=== PATIENT | female | born 1950 | race Caucasian/White ===

== ENCOUNTER → 2016-07-08 | Outpatient (CLI) | payer OTHER ==
[~2016-07-08] MED LIST: ASCO10003 PO; ASPCH81X PO; BIOT1TAB5 PO; COEN1CAP7 PO; EZET10TA63 PO; FISHCAP; HYDR25TA5 PO; LEVO100T7 PO; MULT-845 PO; PARO1TAB27 PO; PRDFOPSD; PRLSR20 PO; RAMI10CA PO; RESV1POW; RESVERATROL PO; VERA180T33 PO; WLC625 PO
== END | disposition home or self-care (01) ==
LOC: C.CPL 13:54
PROVIDERS: ATTEND Orthopaedic Surgery
DX: Z01.810 Encounter for preprocedural cardiovascular examination (principal)

== ENCOUNTER → 2016-07-12 | Outpatient (CLI) | payer OTHER ==
[2016-07-12 17:34] LABS: HEMATOCRIT 41.5 % (37-47); MEAN CELL VOLUME 83.2 fL (80-100); MEAN CORPUSCULAR HEMOGLOBIN 29.5 pg (25-34); MEAN CORPUSCULAR HGB CONC 35.4 g/dl (32-36); MEAN PLATELET VOLUME 8.4 fL (7.4-10.4); PLATELET COUNT 321 K/uL (130-400); RED BLOOD COUNT 4.99 M/uL (4.2-5.4); WHITE BLOOD COUNT 6.25 K/uL (4.8-10.8)
[2016-07-12 17:51] LABS: ALT/SGPT 38 U/L (12-78); BLOOD UREA NITROGEN 21 mg/dl (7-18); BUN/CREATININE RATIO 28.4 (10-20); CALCIUM 9.2 mg/dl (8.5-10.1); CARBON DIOXIDE 24 mmol/L (21-32); CHLORIDE 102 mmol/L (98-107); CHOLESTEROL 187 mg/dl (0-200); CREATININE 0.74 mg/dl (0.60-1.20); GLUCOSE 87 mg/dl (70-99); SODIUM 137 mmol/L (136-145); TRIGLYCERIDES 77 mg/dl (0-150); VERY LOW DENSITY LIPOPROT CALC 15 mg/dl
[2016-07-12 17:58] LABS: ALB/GLOB RATIO 1.3 (0.9-2); ALKALINE PHOSPHATASE 47 U/L (45-117); AST/SGOT 35 U/L (15-37); HDL CHOLESTEROL 63 mg/dl; LDL CHOLESTEROL CALCULATED 109 mg/dl
== END | disposition home or self-care (01) ==
LOC: C.LABPBG 13:08
PROVIDERS: ATTEND Internal Medicine Cardiovascular Disease
DX: I49.1 Atrial premature depolarization (principal)

== ENCOUNTER → 2016-08-15 | Outpatient (CLI) | payer OTHER ==
[2016-08-15 13:07] LABS: AMYLASE 56 U/L (25-115)
== END | disposition home or self-care (01) ==
LOC: C.LABPBG 10:58
PROVIDERS: ATTEND Neuromusculoskeletal Medicine & OMM
DX: K86.2 Cyst of pancreas (principal)

== ENCOUNTER → 2017-02-16 | Outpatient (CLI) | payer OTHER | END | disposition home or self-care (01) | LOC: C.LABPBG 12:45 | PROVIDERS: ATTEND Internal Medicine Gastroenterology | DX: D49.0 Neoplasm of unspecified behavior of digestive system (principal) ==

== ENCOUNTER → 2017-02-21 | Outpatient (CLI) | payer OTHER ==
[2017-02-21 13:07] LABS: BLOOD UREA NITROGEN 18 mg/dl (7-18); BUN/CREATININE RATIO 27.4 (10-20); CALCIUM 9.1 mg/dl (8.5-10.1); CARBON DIOXIDE 30 mmol/L (21-32); CHLORIDE 103 mmol/L (98-107); CREATININE 0.65 mg/dl (0.60-1.20); GLUCOSE 89 mg/dl (70-99); MAGNESIUM 2.1 mg/dl (1.8-2.4); POTASSIUM 4.2 mmol/L (3.5-5.1); SODIUM 138 mmol/L (136-145)
== END | disposition home or self-care (01) ==
LOC: C.LABPBG 10:37
PROVIDERS: ATTEND Family Medicine
DX: I10 Essential (primary) hypertension (principal); E03.9 Hypothyroidism, unspecified; I49.3 Ventricular premature depolarization; I47.1 Supraventricular tachycardia

== ENCOUNTER → 2017-03-02 | Outpatient (CLI) | payer OTHER | END | disposition home or self-care (01) | LOC: C.LABPBG 15:41 | PROVIDERS: ATTEND Family Medicine | DX: J02.9 Acute pharyngitis, unspecified (principal) ==

== ENCOUNTER 2017-03-08 06:24 | Emergency (ER) | payer OTHER ==
[~2017-03-08] VITALS: Ht 172.7 cm; Wt 100.1 kg
[~2017-03-08 06:24] MED LIST changes: -FISHCAP; +FISHCAP PO
[2017-03-08 06:27] VITALS: TEMP 37; Ht 172.7 cm; Wt 100.1 kg
[2017-03-08] MEDS ORDERED: SODIUM CHLORIDE 0.9% 1000ML 1,000 ML IV STA (06:40)
[2017-03-08] MEDS ORDERED: LEValbuterol HFA 15GM INHALER INH STA (06:40)
[2017-03-08] MEDS ORDERED: LEVALBUTEROL 1.25MG/3ML NEB INH STA (06:40)
--- NOTE | 2017-03-08 06:41 | EMERGENCY ROOM VISIT NOTE ---
History Report prepared by Richard: Zee Dc Under the Supervision of: Dr. Damaso Ballesteros M.D. First contact with patient: 06:32 Chief Complaint: IRREGULAR HEARTBEAT Stated Complaint: IRREGULAR HEARTBEAT,LIGHT HEADED History of Present Illness The patient is a 66 year old female who presents to the Emergency Room with complaints of a resolved irregular heart rate that began this morning. The patient states for the past week she has been experiencing a persistent productive cough. She states that recently her doctor started her on Levaquin for a possible pneumonia. The patient states that this morning she woke feeling lightheaded and short of breath. She states that she then noticed her heart rate become irregular. The patient states that she tried taking her pulse. She reports a history of PACs and SVT. The patient states that he follows with Dr. Shi from Cardiology. She denies any history of a cardiac catheterization. The patient states that she has an inhaler but has not used it. She denies being a smoker. The patient denies any abdominal pain. Source of History: patient Onset: this morning Position: other (global) Quality: other (irregular heartbeat) Timing: resolved Associated Symptoms: + cough, + SOB, No abdominal pain Note: Associated Symptoms: lightheaded Review of Systems See HPI for pertinent positives & negatives. A total of 10 systems reviewed and were otherwise negative. Past Medical & Surgical Medical Problems: (1) Hypertension (2) Irregular heart beat Family History Hypertension Social History Smoking Status: Never Smoker Alcohol Use: occasionally Drug Use: none Marital Status: Housing Status: lives with family Occupation Status: retired Current/Historical Medications Scheduled Ascorbic Acid (Vitamin C), 1,000 MG PO QAM Aspirin (Aspirin Chewable), 81 MG PO QAM Biotin (Biotin), 1,000 MCG PO QAM Coenzyme Q10 (Ubidecarenone) (Coq10), 200 MG PO QAM Colesevelam Hcl (Welchol), 3 TAB PO BID Doxycycline (Monohydrate) (Doxycycline), 100 MG PO BID Ezetimibe (Zetia), 10 MG PO QAM Fish Oil-Borage Oil-Flaxseed O (Sm Natural [place]-3 Fish O), 1,000 MG PO DAILY Hydrochlorothiazide (Hydrochlorothiazide), 25 MG PO QAM Levofloxacin (Levaquin), 500 MG PO DAILY Levothyroxine Sodium (Levothyroxine Sodium), 100 MCG PO QAM Multiple Vitamins W/ Minerals (Centrum Silver Adult 50+), 1 TAB PO QAM Omeprazole (Prilosec), 20 MG PO QAM Paroxetine (Paxil), 20 MG PO QAM Ramipril (Ramipril), 10 MG PO QAM Verapamil Hcl (Calan Sr Ext Rel), 180 MG PO QAM Miscellaneous Medications Resveratrol (Bulk) (Resveratrol) Allergies Coded Allergies: Penicillins (Verified Allergy, Intermediate, hives, 03/08/17) Cephalosporins (Unverified Allergy, Mild, 03/08/17) Fentanyl (Unverified Allergy, Mild, INCREASE IN BP, 03/08/17) NSAIDs (Verified Allergy, Mild, "Anti-inflammatories" -- unknown rxn, ) Prednisone (Unverified Allergy, Mild, 03/08/17) Sulfa Drugs (Unverified Allergy, Mild, 03/08/17) Codeine (Unverified Allergy, Unknown, ., 03/08/17) Iodinated Diagnostic Agents (Verified Allergy, Unknown, HIVES, 03/08/17) Niacin (Unverified Allergy, Unknown, ., 03/08/17) Statins (Unverified Allergy, Unknown, ., 03/08/17) Physical Exam Vital Signs Date Time Temp Pulse Resp B/P (MAP) Pulse Ox O2 Delivery O2 Flow Rate FiO2 03/08/17 07:45 84 20 142/71 94 Room Air 03/08/17 07:43 75 145/72 83 150/84 79 142/71 03/08/17 07:06 76 18 98 Room Air 03/08/17 06:50 96 Room Air 03/08/17 06:46 86 03/08/17 06:27 37.0 90 18 88/59 96 Room Air Physical Exam GENERAL: Patient is a healthy-appearing well-nourished female HEAD: Normocephalic atraumatic EYES: Ocular movements intact pupils equal and react to light OROPHARYNX mucous membranes are moist no exudates present no erythema or edema present NECK: Supple no nuchal rigidity CHEST: Good equal expansion LUNGS: Bilateral wheezes at both bases. CARDIAC: Normal S1 and S2 ABDOMEN: Soft nontender no guarding BACK: No CVA tenderness EXTREMITIES: No pain upon palpation normal muscle strength in all groups no clubbing cyanosis or edema NEURO: Patient is following commands and answering questions appropriately. Alert and oriented x3 Cranial Nerves 2-12 grossly intact Medical Decision & Procedures ER Provider Diagnostic Interpretation: X-ray results as stated below per interpretation by me and the radiologist: CHEST ONE VIEW PORTABLE HISTORY: 66 years-old Female Pt c/o SOB acute shortness of breath COMPARISON: Chest radiograph 09/09/2015 TECHNIQUE: Portable upright AP view of the chest FINDINGS: Cardiomediastinal and hilar silhouettes are within normal limits. There is atherosclerosis of the aorta. No pneumothorax, pleural effusion, focal airspace consolidation or overt pulmonary edema. Bones of the chest are grossly intact. IMPRESSION: No acute cardiopulmonary process. The above report was generated using voice recognition software. It may contain grammatical, syntax or spelling errors. Electronically signed by: Guille Bahena M.D. 03/08/2017 7:28 AM Dictated Date/Time: 03/08/2017 7:27 AM Laboratory Results 03/08/17 06:40 Red Blood Count 5.69, Mean Corpuscular Volume 83.7, Mean Corpuscular Hemoglobin 28.3, Mean Corpuscular Hemoglobin Concent 33.8, Mean Platelet Volume 8.1, Neutrophils (%) (Auto) 31.5, Lymphocytes (%) (Auto) 49.3, Monocytes (%) (Auto) 10.4, Eosinophils (%) (Auto) 7.5, Basophils (%) (Auto) 1.1, Neutrophils # (Auto ) 1.80, Lymphocytes # (Auto) 2.81, Monocytes # (Auto) 0.59, Eosinophils # (Auto ) 0.43, Basophils # (Auto) 0.06 03/08/17 06:40 Test 03/08/17 06:40 03/08/17 07:00 White Blood Count 5.70 K/uL (4.8-10.8) Red Blood Count 5.69 M/uL (4.2-5.4) Hemoglobin 16.1 g/dL (12.0-16.0) Hematocrit 47.6 % (37-47) Mean Corpuscular Volume 83.7 fL (80-100) Mean Corpuscular Hemoglobin 28.3 pg (25-34) Mean Corpuscular Hemoglobin Concent 33.8 g/dl (32-36) Platelet Count 230 K/uL (130-400) Mean Platelet Volume 8.1 fL (7.4-10.4) Neutrophils (%) (Auto) 31.5 % Lymphocytes (%) (Auto) 49.3 % Monocytes (%) (Auto) 10.4 % Eosinophils (%) (Auto) 7.5 % Basophils (%) (Auto) 1.1 % Neutrophils # (Auto) 1.80 K/uL (1.4-6.5) Lymphocytes # (Auto) 2.81 K/uL (1.2-3.4) Monocytes # (Auto) 0.59 K/uL (0.11-0.59) Eosinophils # (Auto) 0.43 K/uL (0-0.5) Basophils # (Auto) 0.06 K/uL (0-0.2) RDW Standard Deviation 39.6 fL (36.4-46.3) RDW Coefficient of Variation 13.1 % (11.5-14.5) Immature Granulocyte % (Auto) 0.2 % Immature Granulocyte # (Auto) 0.01 K/uL (0.00-0.02) Anion Gap 8.0 mmol/L (3-11) Est Creatinine Clear Calc Drug Dose 97.8 ml/min Estimated GFR () 104.6 Estimated GFR (Non- 90.3 BUN/Creatinine Ratio 19.5 (10-20) Calcium Level 9.1 mg/dl (8.5-10.1) Total Bilirubin 0.6 mg/dl (0.2-1) Direct Bilirubin 0.1 mg/dl (0-0.2) Aspartate Amino Transf (AST/SGOT) 39 U/L (15-37) Alanine Aminotransferase (ALT/SGPT) 38 U/L (12-78) Alkaline Phosphatase 49 U/L (45-117) Total Creatine Kinase 361 U/L (26-192) Creatine Kinase MB 5.8 ng/ml (0.5-3.6) Creatine Kinase MB Ratio 1.6 (0-3.0) Troponin I < 0.015 ng/ml (0-0.045) Total Protein 8.0 gm/dl (6.4-8.2) Albumin 3.8 gm/dl (3.4-5.0) Thyroid Stimulating Hormone (TSH) 4.100 uIu/ml (0.300-4.500) Influenza Type A Antigen Neg for Influ A (NEG) Influenza Type B Antigen Neg for Influ B (NEG) Labs reviewed by ED physician. Medications Administered Medications (Trade) Dose Ordered Sig/Kenn Route Start Time Stop Time Status Last Admin Dose Admin Sodium Chloride 1,000 ml @ 999 mls/hr Q1H1M STAT IV 03/08/17 06:40 03/08/17 07:40 DC 03/08/17 06:49 999 MLS/HR Levalbuterol (Xopenex 1.25MG/ 3ML Neb) 1.25 mg Q6R STAT INH 03/08/17 06:40 03/08/17 06:43 DC 03/08/17 07:05 1.25 MG Levalbuterol (Xopenex Hfa Inhaler) 2 puffs QID STAT INH 03/08/17 06:40 03/08/17 06:44 DC 03/08/17 06:40 2 PUFFS Doxycycline Hyclate (Vibramycin Cap) 100 mg ONE STAT PO 03/08/17 07:55 03/08/17 07:57 DC 03/08/17 08:05 100 MG ECG Indication: other (irregular heartbeat) Rate (beats per minute): 78 Rhythm: normal sinus Findings: no acute ischemic change, no ectopy ED Course 0633: Past medical records reviewed. The patient was evaluated in room B2. A complete history and physical examination was performed. 0640: Ordered Levalbuterol 2 puffs INH, Levalbuterol 1.25 mg INH, Sodium Chloride 1000 ml @ 999 mls/hr IV. 0750: I reevaluated the patient and she is resting comfortably. I discussed the exam findings with her and I discussed the treatment plan. She verbalized complete understanding and agreement. She is ready to go home. 0755: Ordered Vibramycin cap 100 mg PO. Medical Decision Differential diagnosis: Etiologies such as metabolic, infection, hypo/hyperglycemia, electrolyte abnormalities, cardiac sources, intracerebral event, toxicologic, neurologic, as well as others were entertained. This is a 66-year-old female who presents emergency department complaining of palpitations. The patient is hypotensive upon her arrival to the emergency department. Orthostatic vital signs were obtained after the patient received a liter fluid which showed much improvement the patient's symptoms. The patient is concerned she was placed on Levaquin and she believes that these are causing her palpitations however I feel that she is dehydrated. She was observed for a total of 2 hours in the emergency department and at no time did she exhibit any symptoms of palpitations. She was given a Xopenex breathing treatment and I feel that she can be safely discharged home. I strongly encouraged the patient to take Xopenex twice every 6 hours to get her over this bronchitis. Chest x- ray shows no evidence of pneumonia. I also change the patient's antibiotic from Levaquin to doxycycline in the hopes of decreasing her palpitations. Patient was in agreement with the treatment plan. Medication Reconcilliation Current Medication List: was personally reviewed by me Blood Pressure Screening Patient's blood pressure: Low blood pressure Blood pressure disposition: Did not require urgent referral Impression Primary Impression: Bronchitis Additional Impression: Dehydration Scribe Attestation The scribe's documentation has been prepared under my direction and personally reviewed by me in its entirety. I confirm that the note above accurately reflects all work, treatment, procedures, and medical decision making performed by me. Departure Information Dispostion Home / Self-Care Prescriptions Doxycycline (Monohydrate) (Doxycycline) 100 Mg Cap 100 MG PO BID for 10 Days, #20 TAB Prov: Damaso Ballesteros MD 03/08/17 Referrals Sharri Chacon DO (PCP) Forms HOME CARE DOCUMENTATION FORM, IMPORTANT VISIT INFORMATION, School Instructions, Work Instructions Patient Instructions ED Bronchitis Asthmatic, ED Dehydration, My [facility] Additional Instructions Increase fluids next 48 hours Use inhaler twice every 6 hours STOP taking Levaquin You have been examined and treated today on an emergency basis only. This is not a substitute for, or an effort to provide, complete comprehensive medical care. It is impossible to recognize and treat all injuries or illnesses in a single emergency department visit. It is therefore important that you follow up closely with Dr Chacon. Call as soon as possible for an appointment. Thank you for your time and consideration. I look forward to speaking with you again soon. Please don't hesitate to call us if you have any questions. Problem Qualifiers
[2017-03-08 06:59] LABS: BASO % 1.1 %; BASO ABS # 0.06 K/uL (0-0.2); COMPLETE YES; EOS % 7.5 %; HEMATOCRIT 47.6 % (37-47); IG% 0.2 %; LYMPH % 49.3 %; LYMPH ABS # 2.81 K/uL (1.2-3.4); MEAN CELL VOLUME 83.7 fL (80-100); MEAN CORPUSCULAR HEMOGLOBIN 28.3 pg (25-34); MEAN CORPUSCULAR HGB CONC 33.8 g/dl (32-36); MEAN PLATELET VOLUME 8.1 fL (7.4-10.4); MONO % 10.4 %; NEUT % 31.5 %; PLATELET COUNT 230 K/uL (130-400); RED BLOOD COUNT 5.69 M/uL (4.2-5.4)
[2017-03-08] MEDS ORDERED: LEVO1TAB33 PO (07:00)
[2017-03-08 07:06] VITALS: PULSE 76; O2SAT 98
[2017-03-08 07:16] LABS: ALT/SGPT 38 U/L (12-78); BLOOD UREA NITROGEN 14 mg/dl (7-18); BUN/CREATININE RATIO 19.5 (10-20); CALCIUM 9.1 mg/dl (8.5-10.1); CARBON DIOXIDE 27 mmol/L (21-32); CHLORIDE 101 mmol/L (98-107); GLUCOSE 131 mg/dl (70-99); POTASSIUM 3.3 mmol/L (3.5-5.1); SODIUM 136 mmol/L (136-145)
[2017-03-08 07:27] LABS: ALKALINE PHOSPHATASE 49 U/L (45-117); AST/SGOT 39 U/L (15-37); CKMB/CK RATIO 1.6 (0-3.0)
--- NOTE | 2017-03-08 07:29 | DIAGNOSTIC IMAGING REPORT ---
CHEST ONE VIEW PORTABLE HISTORY: 66 years-old Female Pt c/o SOB acute shortness of breath COMPARISON: Chest radiograph 09/09/2015 TECHNIQUE: Portable upright AP view of the chest FINDINGS: Cardiomediastinal and hilar silhouettes are within normal limits. There is atherosclerosis of the aorta. No pneumothorax, pleural effusion, focal airspace consolidation or overt pulmonary edema. Bones of the chest are grossly intact. IMPRESSION: No acute cardiopulmonary process. The above report was generated using voice recognition software. It may contain grammatical, syntax or spelling errors. Electronically signed by: Guille Bahena M.D. 03/08/2017 7:28 AM Dictated Date/Time: 03/08/2017 7:27 AM
[2017-03-08 07:45] VITALS: BP 142/71; PULSE 84; O2SAT 94
[2017-03-08] MEDS ORDERED: DOXYCYCLINE HYCLATE 100 MG CAP PO STA (07:55)
[2017-03-08] MEDS ORDERED: DOXY-300 PO (07:59)
[2017-03-08 09:15] LABS: INFLUENZA A PCR Neg for Influ A (NEG); INFLUENZA B PCR Neg for Influ B (NEG)
[2017-03-10 15:36] LABS: BORDETELLA PERTUSSIS SOURCE Swab
== END 2017-03-08 08:12 | disposition home or self-care (01) ==
LOC: C.EDB 06:25
DX: J40 Bronchitis, not specified as acute or chronic (principal); E86.0 Dehydration; I10 Essential (primary) hypertension; Z82.49 Family history of ischemic heart disease and other diseases of the circulatory system; Z79.82 Long term (current) use of aspirin

== ENCOUNTER → 2017-05-16 | Outpatient (CLI) | payer OTHER ==
[~2017-05-16] MED LIST changes: +DOXY-300 PO; +LEVO1TAB33 PO; -PRDFOPSD; -RESVERATROL PO
--- NOTE | 2017-05-16 15:28 | MAMMOGRAPHY REPORT ---
BILATERAL DIGITAL SCREENING MAMMOGRAM WITH CAD: 05/16/2017 CLINICAL HISTORY: Routine screening examination. TECHNIQUE: Bilateral CC and MLO views were obtained. Current study was also evaluated with a Compute r Aided Detection (CAD) system. COMPARISON: Comparison is made to exams dated: 03/29/2016 mammogram, 03/16/2015 mammogram, 03/10/2014 mammogram, 03/04/2013 mammogram, 02/27/2012 mammogram, and 02/14/2011 mammogram. BREAST COMPOSITION: There are scattered areas of fibroglandular density in both breasts. FINDINGS: There are numerous benign rim calcifications throughout the left breast, and a few in the right breast. Mild vascular calcification bilaterally. No suspicious mass, architectural distortion or cluster of suspicious microcalcifications is seen. IMPRESSION: ACR BI-RADS CATEGORY 1: NEGATIVE There is no mammographic evidence of malignancy. A 1 year screening mammogram is recommended. The pa tient will receive written notification of the results. Approximately 10% of breast cancers are not detected with mammography. A negative mammographic report should not delay biopsy if a clinically suggestive mass is present. oRbyn Bermeo M.D. ay/:05/16/2017 10:24:50 Director Of Student Aid: Maryjane GROSSMAN)([place]), [facility] letter sent: Normal 1/2 BI-RADS Code: ACR BI-RADS Category 1: Negative
== END | disposition home or self-care (01) ==
LOC: C.MAMM 09:08
PROVIDERS: ATTEND Family Medicine
DX: Z12.31 Encounter for screening mammogram for malignant neoplasm of breast (principal)

== ENCOUNTER → 2017-09-14 | Outpatient (CLI) | payer OTHER ==
[2017-09-14 14:53] LABS: ALBUMIN 4.3 gm/dl (3.4-5.0); ALT/SGPT 43 U/L (12-78); AST/SGOT 35 U/L (15-37); BLOOD UREA NITROGEN 12 mg/dl (7-18); CALCIUM 9.3 mg/dl (8.5-10.1); CARBON DIOXIDE 29 mmol/L (21-32); CREATININE 0.75 mg/dl (0.60-1.20); GLUCOSE 90 mg/dl (70-99); SODIUM 134 mmol/L (136-145)
[2017-09-14 15:04] LABS: ALKALINE PHOSPHATASE 51 U/L (45-117); CHOLESTEROL 147 mg/dl (0-200); LDL CHOLESTEROL CALCULATED 85 mg/dl; TOTAL PROTEIN 7.9 gm/dl (6.4-8.2)
== END | disposition home or self-care (01) ==
LOC: C.LAB1850 11:54
PROVIDERS: ATTEND Family Medicine
DX: I10 Essential (primary) hypertension (principal); E78.00 Pure hypercholesterolemia, unspecified; E03.9 Hypothyroidism, unspecified; Z11.59 Encounter for screening for other viral diseases

== ENCOUNTER 2024-01-10 00:38 | Observation (INO) ==
--- NOTE | 2024-01-10 01:05 | Emergency Department Note ---
History of Present Illness General Chief complaint: Arrhythmia/Palpitations Stated complaint: ARRHYTHMIA/PALPITATIONS - DOESN'T FEEL LIKE AFIB Time Seen by Provider: 01/10/24 00:48 History of Present Illness This is a 73-year-old woman presenting to the emergency department for evaluation of palpitations. Patient has a known history of paroxysmal A-fib and is on Eliquis. She has not missed any dosing. She states that she had increased stress in her life yesterday, and this will often trigger her A-fib. Patient awoke from sleep with an elevated heart rate in the 120s and 130s. This did not feel like her normal A-fib. She typically has metoprolol and flecainide that she takes for acute episodes, but did not take these as the sensation was different from normal. No recent travel history. No fevers or chills. No lightheadedness, dizziness, or neck pain. Home Medications Medication Instructions Recorded Confirmed Type multivitamin 1 tab PO QAM 11/27/18 01/10/24 History ascorbic acid (vitamin C) 1,000 mg 1 gm PO QAM 03/21/19 01/10/24 History tablet coenzyme Q10 200 mg capsule 200 mg PO QAM 07/31/20 01/10/24 History aspirin 81 mg tablet 81 mg PO Q2D 01/07/21 01/10/24 History omega-3 fatty acids 1,000 mg 1,000 mg PO QAM 01/07/21 01/10/24 History capsule (Fish Oil Concentrate) cyclosporine 0.05 % eye drops in a 1 drp ophthalmic (eye) Q12H 03/01/21 01/10/24 History dropperette (Restasis) biotin 10,000 mcg capsule 10,000 mcg PO QAM 06/02/22 01/10/24 History resveratrol 250 mg capsule 250 mg PO QAM 06/02/22 01/10/24 History turmeric 450 mg-turmeric root 1 cap PO QAM 06/02/22 01/10/24 History extract 50 mg capsule calcium carbonate 600 mg-vitamin 1 tab PO DAILY 09/09/22 01/10/24 History D3 5 mcg (200 unit) tablet alprazolam 1 mg tablet,extended 1 mg PO QAM PRN Anxiety #30 tabs 12/15/22 01/10/24 Rx release 24 hr valacyclovir 1 gram tablet 1,000 mg PO BID PRN Outbreak #40 01/25/23 01/10/24 Rx tabs colesevelam 625 mg tablet (WelChol) 1,875 mg (3 x 625 mg) PO BID #540 03/27/23 01/10/24 Rx tabs ramipril 10 mg capsule 10 mg PO BID #180 caps 03/27/23 01/10/24 Rx magnesium chloride 64 mg 64 mg PO BID #180 tabs 04/20/23 01/10/24 Rx (magnesium chloride) tablet,delayed release levothyroxine 100 mcg tablet 100 mcg PO QAM #90 tabs 07/03/23 01/10/24 Rx nebivolol 2.5 mg tablet (Bystolic) 2.5 mg PO QAM #90 tabs 07/03/23 01/10/24 Rx rosuvastatin 5 mg tablet 5 mg PO 3XWK #90 tabs 07/25/23 01/10/24 Rx apixaban 5 mg tablet (Eliquis) 5 mg PO BID #180 tabs 10/20/23 01/10/24 Rx famotidine 20 mg tablet 20 mg PO BID #180 tabs 10/20/23 01/10/24 Rx hydrochlorothiazide 25 mg tablet 25 mg PO QAM #90 tabs 10/20/23 01/10/24 Rx ezetimibe 10 mg tablet 10 mg PO QAM #90 tabs 12/04/23 01/10/24 Rx flecainide 50 mg tablet 50 mg PO Q12H PRN atrial 12/04/23 01/10/24 Rx fibrillation #180 tabs verapamil 240 mg tablet,extended 240 mg PO QAM #90 tabs 12/04/23 01/10/24 Rx release paroxetine HCl 20 mg tablet 20 mg PO QAM #90 tabs 12/14/23 01/10/24 Rx metoprolol tartrate 25 mg tablet 25 mg PO Q6 PRN .a-fib 01/10/24 01/10/24 History Allergies Allergy/AdvReac Type Severity Reaction Status Date / Time Iodinated Contrast Media Allergy Severe HIVES Verified 01/10/24 02:13 Penicillins Allergy Severe hives Verified 01/10/24 02:13 Cephalosporins Allergy Intermediate Hives Verified 01/10/24 02:13 fentanyl Allergy Intermediate INCREASE Verified 01/10/24 02:13 IN BP NSAIDS (Non-Steroidal Allergy Intermediate migraines Verified 01/10/24 02:13 Anti-Inflamma prednisone Allergy Intermediate all over Verified 01/10/24 02:13 body aches Sulfa (Sulfonamide Allergy Mild Hives Verified 01/10/24 02:13 Antibiotics) codeine Allergy Unknown Unknown Verified 01/10/24 02:13 niacin Allergy Unknown leg and Verified 01/10/24 02:13 muscle pain Szoeuol-IGG-RbQ Reductase Allergy Unknown leg and Verified 01/10/24 02:13 Inhibitor muscle pain [Kevlond-Vit-Vbe Reductase Inhibitor] cephalexin [From Keflex] Allergy Hives Verified 01/10/24 02:15 Past Med/Surg History Problem List (Updated 01/10/24 @ 05:14 by Gordy Ann PA-C) Elevated troponin (Acute) Atrial fibrillation with rapid ventricular response (Acute) Panic disorder First degree AV block Otosclerosis of both ears Palpitations Chronic anticoagulation Tachycardia-bradycardia syndrome Sinus node dysfunction Paroxysmal atrial fibrillation Normal left ventricular systolic function and wall motion Diaphoresis Anxiety in acute stress reaction Hypomagnesemia Osteopenia History of back surgery (~1988) discectomy with no fusion Atheroembolism pt unsure Hollenhorst plaque, 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 Hypertension Medical History Hx of colonic polyps Hiatal hernia Elevated liver enzymes Atrial fibrillation with rapid ventricular response typically will last for 12-24 hours. will convert with medication. last episode 03/11/22. Surgical History History of carpal tunnel surgery of left wrist (05/2022) History of colonoscopy History of ERCP S/P left knee arthroscopy (10/2014) x2 partial lateral meniscectomy S/P carpal tunnel release Right wrist S/P trigger finger release b/l hands S/P cataract extraction Hx of tonsillectomy H/O arthroscopy of shoulder (07/13/16) Right shoulder, 07/13/2016 H/O adenoidectomy Family History Mother Carotid stenosis Hearing loss Coronary heart disease Father , age 52 Heart disease Myocardial infarction, Onset Age: 52 Sister Breast cancer Other No family history of adverse response to anesthesia Denies family history of Ovarian cancer Prostate cancer Colorectal cancer Social History Smoking Status: Never smoker Second Hand Exposure: No; Do You Dip or Chew Tobacco: No; Hx Alcohol Use: No Hx Substance Use: No Preferred Language: Cymraes Communication Ability: Effective Visual Impairment: No Limitations Hearing Ability: Use of Hearing Aid Exhibition Designer Required: No Beliefs That Will Affect Care: None marital status: Current Living Situation: Spouse current occupational status: retired Feels Safe at Home: Yes Childhood Exposure to Second-Hand Smoke: Yes Diet: regular Diet Comment: regular caffeine: No during the past year weight has: remained stable Dental Care, Regularly: Yes Physical Activity Frequency: Daily Seatbelt Use: always Sunscreen Use: No Assistive Devices: Hearing Aid - Bilateral Review of Systems A total of 10 systems reviewed and were otherwise negative Physical Exam Vital Signs Vital Signs - 24 hr 01/10/24 00:39 01/10/24 00:41 01/10/24 00:53 Temperature 36.8 C Temperature Source Temporal Artery Scan Pulse Rate 125 H 126 H Pulse Rate from SpO2 Sensor Respiratory Rate 20 Respiratory Effort / Characteristics Non-Labored Spontaneous Respiratory Depth Normal Blood Pressure 107/51 L Blood Pressure Mean 69 Pulse Oximetry 97 Oxygen Delivery Method Room Air Room Air Sepsis Recent Fever Within 48 Hours No Sepsis New/Unexplained Change in Mental Status No Sepsis Action Taken by Nursing No Action Required 01/10/24 00:54 01/10/24 00:54 01/10/24 03:06 Temperature Temperature Source Pulse Rate 110 H 89 Pulse Rate from SpO2 Sensor 111 H 94 H Respiratory Rate 15 19 Respiratory Effort / Characteristics Respiratory Depth Blood Pressure 162/117 H 120/95 Blood Pressure Mean 132 103 Pulse Oximetry 97 98 94 Oxygen Delivery Method Room Air Sepsis Recent Fever Within 48 Hours Sepsis New/Unexplained Change in Mental Status Sepsis Action Taken by Nursing 01/10/24 04:44 Temperature Temperature Source Pulse Rate 99 H Pulse Rate from SpO2 Sensor Respiratory Rate Respiratory Effort / Characteristics Respiratory Depth Blood Pressure Blood Pressure Mean Pulse Oximetry Oxygen Delivery Method Sepsis Recent Fever Within 48 Hours Sepsis New/Unexplained Change in Mental Status Sepsis Action Taken by Nursing VITALS: Vitals are noted on the nurse's note and reviewed by myself. Vital signs with intermittent tachycardia GENERAL: Well-developed, well-nourished, white female, who is in no acute distress, pleasant, and cooperative HEAD: Normocephalic atraumatic. NECK: Supple without nuchal rigidity. No lymphadenopathy. No thyromegaly. Cervical spine is nontender. HEART: Irregularly irregular LUNGS: Clear to auscultation bilaterally without wheezes, rales or rhonchi. No retractions or accessory muscle use. ABDOMEN: Positive normal bowel sounds x 4. Soft, nontender, without masses or organomegaly. No guarding or rebound tenderness. MUSCULOSKELETAL: No muscle atrophy, erythema, or edema noted. Full range of motion in all extremities. Course Administered Medications Magnesium Sulfate/Dextrose (Magnesium Sulfate / D5w) 1 gm in 100 mls @ 50 mls/hr IV Q2H STEPHANIE Stop: 01/10/24 08:14 Last Admin: 01/10/24 04:06 Dose: 50 mls/hr Documented By: ELVIRA Discontinued Medications Flecainide Acetate (Flecainide Acetate 100 Mg Tablet) 100 mg PO NOW STA Stop: 01/10/24 02:08 Last Admin: 01/10/24 02:20 Dose: 100 mg Documented By: ELVIRA Sodium Chloride (Nss) 500 mls @ 999 mls/hr IV .Q31M ONE Stop: 01/10/24 01:24 Last Infusion: 01/10/24 01:55 Dose: Infused Documented By: Admin: 01/10/24 01:07 Dose: 999 mls/hr Documented By: ELVIRA Metoprolol Tartrate (Metoprolol Tartrate 25 Mg Tab) 25 mg PO ONE STA Stop: 01/10/24 04:02 Last Admin: 01/10/24 04:06 Dose: 25 mg Documented By: ELVIRA Metoprolol Tartrate (Metoprolol Tartrate 25 Mg Tab) 25 mg PO ONE STA Stop: 01/10/24 05:01 Last Admin: 01/10/24 05:03 Dose: 25 mg Documented By: ELVIRA Medical Decision Making Differential Diagnosis Differential diagnosis includes, but is not limited to: Myocardial infarction, dysrhythmia, pericarditis, pneumothorax, aortic aneurysm/dissection, DVT/PE, anxiety, GERD, PUD, electrolyte imbalance, thyroid disorder, pneumonia, bronchitis, pancreatitis, and others Laboratory Data 01/10/24 01:01 01/10/24 01:01 Lab Results 01/10/24 01/10/24 Range/Units 01:01 02:23 WBC 6.91 (4.8-10.8) K/ul RBC 5.09 (4.20-5.40) M/uL Hgb 14.9 (12.0-16.0) g/dl Hct 43.4 (37.0-47.0) % MCV 85.3 (80.0-100.0) fL MCH 29.3 (25.0-34.0) pg MCHC 34.3 (32.0-36.0) g/dL RDW Std Deviation 38.7 (36.4-46.3) fL RDW Coeff of Greta 12.5 (11.5-14.5) % Plt Count 308 (130-400) K/uL MPV 8.1 L (9.4-12.4) fL Immature Gran % (Auto) 0.3 % Neut % (Auto) 39.0 % Lymph % (Auto) 47.3 % [place] % (Auto) 9.3 % Eos % (Auto) 3.2 % Baso % (Auto) 0.9 % Neut # (Auto) 2.70 (1.40-6.50) K/uL Lymph # (Auto) 3.27 (1.20-3.40) K/uL [place] # (Auto) 0.64 H (0.11-0.59) K/uL Eos # (Auto) 0.22 (0.00-0.50) K/uL Baso # (Auto) 0.06 (0.00-0.20) K/uL Immature Gran # (Auto) 0.02 (0.01-0.20) K/uL Sodium 135 L (136-145) mmol/L Potassium 4.3 (3.5-5.1) mmol/L Chloride 99 (98-107) mmol/L Carbon Dioxide 27 (21-32) mmol/L Anion Gap 9 (3-11) BUN 13 (6-23) mg/dl Creatinine 0.68 (0.6-1.2) mg/dl Est Cr Clr Drug Dosing 85.3 ml/min Est GFR ( Amer) 100.6 ml/min Est GFR (Non-Af Amer) 86.8 ml/min BUN/Creatinine Ratio 19.1 (10-20) Glucose 111 H (70-99(Fasting)) mg/dl Calcium 9.6 (8.6-10.3) mg/dl Magnesium 1.7 (1.7-2.4) mg/dl Total Bilirubin 0.8 (0.2-1.0) mg/dl AST 41 H (13-39) U/L ALT 22 (7-52) U/L Alkaline Phosphatase 45 (34-104) U/L Troponin I High Sens 18.5 H 20.0 H (0-14) pg/ml Total Protein 7.7 (6.0-8.3) gm/dl Albumin 4.6 (3.4-5.0) gm/dl Globulin 3.1 (2.5-4.0) gm/dl Albumin/Globulin Ratio 1.5 (0.9-2) Lipase 23 (11-82) U/L Urine Color Yellow Urine Appearance Clear (Clear) Urine pH 6.0 (4.5-7.5) Ur Specific [place] 1.006 (1.000-1.030) Urine Protein Negative (Negative) Urine Glucose (UA) Negative (Negative) Urine Ketones Trace H (Negative) Urine Blood Negative (Negative) Urine Nitrite Negative (Negative) Urine Bilirubin Negative (Negative) Urine Urobilinogen Negative (Negative) Ur Leukocyte Esterase 1+ H (Negative) Urine WBC (Auto) 0-5 (0-5) /hpf Urine RBC (Auto) 0-2 (0-2) /hpf U Hyaline Cast (Auto) 0-2 (0-2) /lpf U Epithel Cells (Auto) 0-2 (0-2) /hpf Urine Bacteria (Auto) None Seen (None Seen) MDM Narrative Physical exam and history were performed. Nursing notes, EMR, and Medication List were personally reviewed. No social concerns were identified as barriers to patients care. Patient appears to have elevated heart rate bring her to the ER. EKG was performed at bedside and does show A-fib, which clinically correlates with her symptoms. Patient is with a rate that is persistently in the 120s. IV access was established and labs were obtained. She was hydrated with normal saline. An order was placed for continuous cardiac monitoring. The monitor shows a rate of 118 with atrial fibrillation rhythm. Patient's blood work is as above and was reviewed. She does not have a significantly elevated white blood cell count, gross anemia, bandemia, or significant electrolyte imbalance. Transaminases are not diagnostic. Initial high-sensitivity troponin is slightly elevated at 18.5. Repeat troponin was 20.0. Patient was given a dose of flecainide here in the ER as this has helped her as an outpatient, but this did not provide any significant immediate relief. Case discussed with my attending who also evaluated the patient. Overall the patient does not appear well for discharge at this time and escalation of care is felt to be necessary. Case was discussed with the on-call hospitalist team who agreed to evaluate the patient here in the ER. Please see their dictation for further patient course, plan, disposition. The chart was completed utilizing [employer] Speech Voice Recognition Software. Grammatical errors, random word insertions, pronoun errors, and incomplete sentences are an occasional consequence of this system due to software limitations, ambient noise, and hardware issues. Any formal questions or concerns about the content, text, or information contained within the body of this dictation should be directly addressed to the provider for clarification. Impression & Plan Atrial fibrillation with rapid ventricular response, Elevated troponin Discharge Plan Visit Data Chief Complaint: Arrhythmia/Palpitations Stated Complaint: ARRHYTHMIA/PALPITATIONS - DOESN'T FEEL LIKE AFIB ED Provider: Jeni Mcguire ED Midlevel Provider: Gordy Ann Discharge Problem: Atrial fibrillation with rapid ventricular response, Elevated troponin Forms Stand Alone Forms: [facility] Prescriptions Prescriptions: No Action alprazolam 1 mg tablet extended release 24 hr 1 mg PO QAM PRN (Reason: Anxiety) Qty: 30 0RF valacyclovir 1 gram tablet 1,000 mg PO BID PRN (Reason: Outbreak) Qty: 40 1RF Rx Instructions: Take 1 tab PO bid x 7-10 days, repeat PRN. Start of first sign of symptoms. Repeat course PRN ramipril 10 mg capsule 10 mg PO BID Qty: 180 3RF colesevelam [WelChol] 625 mg tablet 1,875 mg PO BID Qty: 540 3RF magnesium chloride 64 mg tablet,delayed release (DR/EC) 64 mg PO BID Qty: 180 3RF levothyroxine 100 mcg tablet 100 mcg PO QAM Qty: 90 3RF nebivolol [Bystolic] 2.5 mg tablet 2.5 mg PO QAM Qty: 90 3RF rosuvastatin 5 mg tablet 5 mg PO 3XWK Qty: 90 3RF hydrochlorothiazide 25 mg tablet 25 mg PO QAM Qty: 90 1RF Hold Instructions: low BP Rx Instructions: Restarted by [facility] on 02/20/2023- Per patient famotidine 20 mg tablet 20 mg PO BID Qty: 180 3RF Eliquis 5 mg tablet 5 mg PO BID Qty: 180 3RF Hold Instructions: x 5 days verapamil 240 mg tablet extended release 240 mg PO QAM Qty: 90 1RF ezetimibe 10 mg tablet 10 mg PO QAM Qty: 90 1RF flecainide 50 mg tablet 50 mg PO Q12H PRN (Reason: atrial fibrillation) Qty: 180 3RF paroxetine HCl 20 mg tablet 20 mg PO QAM Qty: 90 1RF multivitamin tablet 1 tab PO QAM ascorbic acid (vitamin C) 1,000 mg tablet 1 gm PO QAM coenzyme Q10 200 mg capsule 200 mg PO QAM aspirin 81 mg tablet 81 mg PO Q2D omega-3 fatty acids [Fish Oil Concentrate] 1,000 mg capsule 1,000 mg PO QAM Restasis 0.05 % dropperette 1 drp ophthalmic (eye) Q12H biotin 10,000 mcg Capsule 10,000 mcg PO QAM resveratrol 250 mg Capsule 250 mg PO QAM turmeric-turmeric root extract 450-50 mg Capsule 1 cap PO QAM calcium carbonate-vitamin D3 600 mg-5 mcg (200 unit) tablet 1 tab PO DAILY metoprolol tartrate 25 mg tablet 25 mg PO Q6 PRN (Reason: .a-fib) Referrals Referrals: Sharri Chacon DO [Primary Care Provider] -
[2024-01-10] MEDS: SODIUM CHLORIDE 0.9% 500 ML IV ONE (01:07)
[2024-01-10 01:30] LABS: Basophils # (auto) 0.06 K/uL (0.00-0.20); Basophils % (auto) 0.9 %; Eosinophils # (auto) 0.22 K/uL (0.00-0.50); Eosinophils % (auto) 3.2 %; Hematocrit (blood only) 43.4 % (37.0-47.0); Hemoglobin 14.9 g/dl (12.0-16.0); Immature Granulocytes # (auto) 0.02 K/uL (0.01-0.20); Immature Granulocytes % (auto) 0.3 %; Lymphocytes # (auto) 3.27 K/uL (1.20-3.40); Lymphocytes % (auto) 47.3 %; Mean Corpuscular Hemoglobin 29.3 pg (25.0-34.0); Mean Corpuscular Hgb Conc 34.3 g/dL (32.0-36.0); Mean Corpuscular Volume 85.3 fL (80.0-100.0); Mean Platelet Volume 8.1 fL (9.4-12.4); Monocytes # (auto) 0.64 K/uL (0.11-0.59); Monocytes % (auto) 9.3 %; Platelet Count 308 K/uL (130-400); RDW Coefficient of Variation 12.5 % (11.5-14.5); RDW Standard Deviation 38.7 fL (36.4-46.3); Red Blood Count 5.09 M/uL (4.20-5.40); White Blood Count 6.91 K/ul (4.8-10.8)
[2024-01-10 01:40] LABS: Albumin Globulin Ratio 1.5 (0.9-2); Albumin Level 4.6 gm/dl (3.4-5.0); BUN Creatinine Ratio 19.1 (10-20); Bilirubin,Total 0.8 mg/dl (0.2-1.0); Calcium 9.6 mg/dl (8.6-10.3); Creatinine Clr Calc Pharmacy 85.3 ml/min; Est GFR (African American) 100.6 ml/min; Est GFR (Non-African American) 86.8 ml/min; Globulin 3.1 gm/dl (2.5-4.0); Magnesium 1.7 mg/dl (1.7-2.4); Potassium 4.3 mmol/L (3.5-5.1); Total Protein 7.7 gm/dl (6.0-8.3)
[2024-01-10 01:46] LABS: Troponin I High Sensitivity 18.5 pg/ml (0-14)
[2024-01-10] MEDS: FLECAINIDE ACETATE 100 MG TABLET PO STA (02:20)
[2024-01-10 02:36] LABS: Appearance Urine Clear (Clear); Bacteria Urine Automated None Seen (None Seen); Bilirubin Urine Negative (Negative); Blood Urine Negative (Negative); Cast Urine Automated 0-2 /lpf (0-2); Color Urine Yellow; Epithelial Cell Urine Auto 0-2 /hpf (0-2); Glucose Urine UA Negative (Negative); Ketones Urine Trace (Negative); Leukocyte Esterase Urine 1+ (Negative); Nitrite Urine Negative (Negative); Protein Urine Negative (Negative); RBC Urine Automated 0-2 /hpf (0-2); Specific Gravity Urine 1.006 (1.000-1.030); Urobilinogen Urine Negative (Negative); WBC Urine Automated 0-5 /hpf (0-5)
--- NOTE | 2024-01-10 03:44 | Emergency Department Note ---
ED Visit Note I was consulted by the Advanced Practice Provider. I personally made/approved the management plan and take responsibility for the patient management. I performed a substantive portion of the visit. This includes the aspects of: -History and Personally seeing the patient -MDM -I independently interpreted the following studies: portable chest x-ray-no significant cardiomegaly or evidence of CHF. .
[2024-01-10] MEDS: MAGNESIUM SULFATE / D5W 1 GM/100 ML BAG IV SCH (04:06)
[2024-01-10] MEDS: METOPROLOL TARTRATE 25 MG TAB PO STA ×2 (04:06→05:03)
--- NOTE | 2024-01-10 04:25 | History & Physical Report ---
Date of Service January 10, 2024 Assessment & Plan (1) Atrial fibrillation with rapid ventricular response: Plan: Patient presented in a fib with RVR. Likely in the setting of acute dehydration from diuretic use and low mag. Given flecainide 100 mg in the ED. Patient appears to be attempting to convert to sinus on tele after PO metoprolol tartrate 25 mg, will repeat dose. If unsuccessful consider IV Lopressor. Optimize electrolytes Mg >2, K > 4 EKG once converts to sinus Continue Eliquis 5 mg BID Consider daily rate control medication (2) Panic disorder: Plan: Continue home meds - Xanax, paroxetine (3) Hypomagnesemia: Plan: Repletion as indicated (4) Hypercholesterolemia: Plan: Continue home meds (5) Anxiety and depression: Plan: See above (6) Hypothyroidism: Plan: Continue home levothyroxine. (7) Acid reflux disease: Plan: Continue home famotidine (8) Hypertension: Plan: Continue home verapamil and nebivolol. Hold HCTZ Plan Code status: full DVT ppx: on Eliquis, encourage ambulation FENGI: diet Dispo: PCU/tele, no anticipated discharge needs History of Present Illness Chief Complaint: heart palpitations Primary Care Provider: Sharri Chacon, DO 73 y/o with a PMHx of HLD, HTN, tachybrady syndrome, a fib, hypothyroidism, and chronic low back pain presents for evaluation of palpitations. Patient awoke from sleep experiencing lightheadedness, SOB, heart racing, and palpitations. She states that this felt different from her prior bouts of a fib and thats what brought her to the ED. She has been in a fib with rvr in the past. Follows with Dr. Shi and has declined daily medication for rate control. Is anticoagulated with Eliquis 5 mg BID. Does have metoprolol and flecainide to use as needed for RVR. Patient with recent diuretic use, which may have caused an element of dehydration. Feels chest pressure/flutter, no pain. No nausea, vomiting, diarrhea. No fevers or chills. Given flecainide 100 mg and NSS 500 mL bolus in the ED. Trop slightly elevated at 18.5 --> 20.0. Hospitalist team consulted for admission. Allergies Allergy/AdvReac Type Severity Reaction Status Date / Time Iodinated Contrast Media Allergy Severe HIVES Verified 01/10/24 02:13 Penicillins Allergy Severe hives Verified 01/10/24 02:13 Cephalosporins Allergy Intermediate Hives Verified 01/10/24 02:13 fentanyl Allergy Intermediate INCREASE Verified 01/10/24 02:13 IN BP NSAIDS (Non-Steroidal Allergy Intermediate migraines Verified 01/10/24 02:13 Anti-Inflamma prednisone Allergy Intermediate all over Verified 01/10/24 02:13 body aches Sulfa (Sulfonamide Allergy Mild Hives Verified 01/10/24 02:13 Antibiotics) codeine Allergy Unknown Unknown Verified 01/10/24 02:13 niacin Allergy Unknown leg and Verified 01/10/24 02:13 muscle pain Nupxewy-RSF-VdO Reductase Allergy Unknown leg and Verified 01/10/24 02:13 Inhibitor muscle pain [Rrywszv-Wyd-Qxk Reductase Inhibitor] cephalexin [From Keflex] Allergy Hives Verified 01/10/24 02:15 Home Medications Medication Instructions Recorded Confirmed Type multivitamin 1 tab PO QAM 11/27/18 01/10/24 History ascorbic acid (vitamin C) 1,000 mg 1 gm PO QAM 03/21/19 01/10/24 History tablet coenzyme Q10 200 mg capsule 200 mg PO QAM 07/31/20 01/10/24 History aspirin 81 mg tablet 81 mg PO Q2D 01/07/21 01/10/24 History omega-3 fatty acids 1,000 mg 1,000 mg PO QAM 01/07/21 01/10/24 History capsule (Fish Oil Concentrate) cyclosporine 0.05 % eye drops in a 1 drp ophthalmic (eye) Q12H 03/01/21 01/10/24 History dropperette (Restasis) biotin 10,000 mcg capsule 10,000 mcg PO QAM 06/02/22 01/10/24 History resveratrol 250 mg capsule 250 mg PO QAM 06/02/22 01/10/24 History turmeric 450 mg-turmeric root 1 cap PO QAM 06/02/22 01/10/24 History extract 50 mg capsule calcium carbonate 600 mg-vitamin 1 tab PO DAILY 09/09/22 01/10/24 History D3 5 mcg (200 unit) tablet alprazolam 1 mg tablet,extended 1 mg PO QAM PRN Anxiety #30 tabs 12/15/22 01/10/24 Rx release 24 hr valacyclovir 1 gram tablet 1,000 mg PO BID PRN Outbreak #40 01/25/23 01/10/24 Rx tabs colesevelam 625 mg tablet (WelChol) 1,875 mg (3 x 625 mg) PO BID #540 03/27/23 01/10/24 Rx tabs ramipril 10 mg capsule 10 mg PO BID #180 caps 03/27/23 01/10/24 Rx magnesium chloride 64 mg 64 mg PO BID #180 tabs 04/20/23 01/10/24 Rx (magnesium chloride) tablet,delayed release levothyroxine 100 mcg tablet 100 mcg PO QAM #90 tabs 07/03/23 01/10/24 Rx nebivolol 2.5 mg tablet (Bystolic) 2.5 mg PO QAM #90 tabs 07/03/23 01/10/24 Rx rosuvastatin 5 mg tablet 5 mg PO 3XWK #90 tabs 07/25/23 01/10/24 Rx apixaban 5 mg tablet (Eliquis) 5 mg PO BID #180 tabs 10/20/23 01/10/24 Rx famotidine 20 mg tablet 20 mg PO BID #180 tabs 10/20/23 01/10/24 Rx hydrochlorothiazide 25 mg tablet 25 mg PO QAM #90 tabs 10/20/23 01/10/24 Rx ezetimibe 10 mg tablet 10 mg PO QAM #90 tabs 12/04/23 01/10/24 Rx flecainide 50 mg tablet 50 mg PO Q12H PRN atrial 12/04/23 01/10/24 Rx fibrillation #180 tabs verapamil 240 mg tablet,extended 240 mg PO QAM #90 tabs 12/04/23 01/10/24 Rx release paroxetine HCl 20 mg tablet 20 mg PO QAM #90 tabs 12/14/23 01/10/24 Rx metoprolol tartrate 25 mg tablet 25 mg PO Q6 PRN .a-fib 01/10/24 01/10/24 History Past Med/Surg History Problem List (Updated 01/10/24 @ 14:23 by Vitaliy Carballo MD) Bradycardia Elevated troponin (Acute) Atrial fibrillation with rapid ventricular response (Acute) Panic disorder First degree AV block Otosclerosis of both ears Palpitations Chronic anticoagulation Tachycardia-bradycardia syndrome Sinus node dysfunction Paroxysmal atrial fibrillation Normal left ventricular systolic function and wall motion Diaphoresis Anxiety in acute stress reaction Hypomagnesemia Osteopenia History of back surgery (~1988) discectomy with no fusion Atheroembolism pt unsure Hollenhorst plaque, 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 Hx of colonic polyps Hiatal hernia Elevated liver enzymes Atrial fibrillation with rapid ventricular response typically will last for 12-24 hours. will convert with medication. last episode 03/11/22. Surgical History History of carpal tunnel surgery of left wrist (05/2022) History of colonoscopy History of ERCP S/P left knee arthroscopy (10/2014) x2 partial lateral meniscectomy S/P carpal tunnel release Right wrist S/P trigger finger release b/l hands S/P cataract extraction Hx of tonsillectomy H/O arthroscopy of shoulder (07/13/16) Right shoulder, 07/13/2016 H/O adenoidectomy Family History Mother Carotid stenosis Hearing loss Coronary heart disease Father , age 52 Heart disease Myocardial infarction, Onset Age: 52 Sister Breast cancer Other No family history of adverse response to anesthesia Denies family history of Ovarian cancer Prostate cancer Colorectal cancer Social History Smoking Status: Never smoker Second Hand Exposure: No; Do You Dip or Chew Tobacco: No; Hx Alcohol Use: No Hx Substance Use: No Preferred Language: Surinamese Communication Ability: Effective Visual Impairment: No Limitations Hearing Ability: Use of Hearing Aid Hand Sole Sewer Required: No Beliefs That Will Affect Care: None marital status: Current Living Situation: Spouse current occupational status: retired Feels Safe at Home: Yes Childhood Exposure to Second-Hand Smoke: Yes Diet: regular Diet Comment: regular caffeine: No during the past year weight has: remained stable Dental Care, Regularly: Yes Physical Activity Frequency: Daily Seatbelt Use: always Sunscreen Use: No Assistive Devices: Hearing Aid - Bilateral Review of Systems 2 Review of Systems: See HPI Physical Exam 2 Physical Exam: Gen: well appearing patient in NAD HEENT: AT NC MMM Resp: CTAB no wheezing no increased work of breathing CV: tachycardic, irregularly irregular, no m/r/g clinically well perfused Abd: non-distended MSK: no obvious deformities Skin: no rashes or bruising Neuro: alert and oriented Psych: appropriate mood and affect Results & Data Results & Data Vital Signs (Past 12 Hours) Vital Signs Temp Pulse Resp BP Pulse Ox O2 Del Method 01/10/24 03:06 89 19 120/95 94 01/10/24 00:54 110 H 15 162/117 H 98 01/10/24 00:54 97 Room Air 01/10/24 00:53 126 H 01/10/24 00:41 36.8 C 125 H 20 107/51 L 97 Room Air 01/10/24 00:39 Room Air Laboratory Results 01/10/24 01:01 01/10/24 01:01 Supervising Physician Co-Signing Physician Notes Attending addendum: I have physically seen this patient, have supervised the medical residents activities, and agree with the H&P unless as otherwise noted. Assessment and Plan: Atrial fibrillation with RVR/hypertension- The patient will be admitted to telemetry for serial cardiac enzymes, serial EKG's, cardiac rhythm monitoring and a 2-D echocardiogram with Dopplers. Contributing factors including limited to: Low magnesium dehydration associated with diuretics Continue verapamil and nebivolol Hold HCTZ Replace magnesium IV fluid rehydration as noted Continue Eliquis 5 mg p.o. twice daily Consult cardiology Panic disorder/anxiety and depression- Continue Xanax and paroxetine GERD- Continue famotidine Resident Activity Tracking Resident Involvement: Resident Care Provided Care Provided: Adult Hospital Medicine
[2024-01-10] MEDS ORDERED: FLECAINIDE ACETATE 100 MG TABLET PO PRN (05:56)
[2024-01-10] MEDS ORDERED: POLYETHYLENE (MIRALAX) 17 GM PACK PO PRN (05:56)
[2024-01-10] MEDS ORDERED: METOPROLOL TARTRATE 25 MG TAB PO PRN (05:56)
[2024-01-10] MEDS ORDERED: ACETAMINOPHEN 325 MG TAB PO PRN (05:56)
[2024-01-10] MEDS ORDERED: LORazepam 0.5 MG TAB PO PRN (06:26)
[2024-01-10] MEDS: ASPIRIN 81 MG ECTAB PO SCH (07:01)
[2024-01-10] MEDS: LEVOTHYROXINE SODIUM 100 MCG TABLET PO SCH (07:01)
--- NOTE | 2024-01-10 07:28 | XRay Report ---
XR chest 1V portable CLINICAL HISTORY: Chest pain, nonspecific TECHNIQUE: Single frontal radiograph of the chest was obtained. Comparison: Comparison is made to chest radiograph 06/23/2019 FINDINGS: No lines and tubes are seen. Calcified aortic knob is seen. The lungs are clear. No evidence of pleur al effusion or pneumothorax. IMPRESSION: No acute chest disease. ACT 112: Negative or not required by law. Electronically signed by: Fernando Nugent M.D. 01/10/2024 7:27 AM
[2024-01-10] MEDS: ENALAPRIL MALEATE 10 MG TAB PO SCH (08:10)
[2024-01-10] MEDS: PARoxetine HCL 20 MG TAB PO SCH (08:10)
[2024-01-10] MEDS: FAMOTIDINE 20 MG TAB PO SCH (08:11)
[2024-01-10] MEDS: ROSUVASTATIN CALCIUM 5 MG TAB PO SCH (08:11)
[2024-01-10] MEDS: VERAPAMIL HCL 240 MG TABCR PO SCH (08:11)
[2024-01-10] MEDS: EZETIMIBE 10 MG TAB PO SCH (08:11)
[2024-01-10] MEDS: APIXABAN 5 MG TABLET PO SCH (08:11)
[2024-01-10] MEDS: ATROPINE SULFATE 0.1 MG/ML 10ML SYR IV STA (12:27)
--- NOTE | 2024-01-10 12:44 | Electrocardiogram Report ---
Test Reason : Blood Pressure : */* mmHG Vent. Rate : 97 BPM Atrial Rate : * BPM P-R Int : * ms QRS Dur : 94 ms QT Int : 360 ms P-R-T Axes : * -39 102 degrees QTcB Int : 457 ms Atrial fibrillation Left axis deviation Left ventricular hypertrophy Abnormal ECG When compared with ECG of 30-Aug-2023 09:32, HR has increased by 49 bpm Sinus bradycardia no longer present Confirmed by Vitaliy Carballo ([id number]) on 01/10/2024 12:44:19 PM Referred By: REFERRED SELF Confirmed By: Vitaliy Carballo
--- NOTE | 2024-01-10 14:08 | Cardiology Consultation ---
Date of Consultation January 10, 2024 Assessment & Plan (1) Atrial fibrillation with rapid ventricular response: (2) Tachycardia-bradycardia syndrome: (3) Bradycardia: (4) Hypomagnesemia: (5) Elevated troponin: Plan 73-year-old woman with multiyear history of paroxysmal atrial fibrillation with tachybradycardia tendencies who presents with recurrent atrial fibrillation with initially mildly elevated rate and now with mild bradycardia after receiving additional medication (on verapamil, received metoprolol and flecainide). Although her qdtw-ai-uknd heart rate can appear fairly bradycardic at times, not convincing that she has hypoperfusion given normal BP readings. Would simply hold additional negative chronotropes and not be overly aggressive normalizing her heart rate in the absence of hypotension or evidence of hypoperfusion. Discussed with her at some length means for addressing tachybradycardia syndrome, could continue with titration of negative chronotropic medications while allowing her to remain in atrial fibrillation, could electrically cardiovert and titrate medications while in sinus, or could place a pacemaker to allow for more aggressive titration of negative chronotropic regimen. Agree with correction of mild hypomagnesemia. Since she developed this while on a magnesium supplement, could consider an alternative or additional diuretic such as spironolactone or triamterene/HCTZ with magnesium sparing effect. Minimal troponin elevations with flat curve likely mild demand ischemia, no evidence of clinically significant acute coronary process. Would continue bedrest while negative chronotropic medications washout, once heart rate is more physiologic could attempt ambulating while still in atrial fibrillation and assess her tolerance for rate control without rhythm correction. If she remains symptomatic or difficult in regards to rate control, could proceed with electrical cardioversion tomorrow morning. Will continue to follow. History of Present Illness Reason for Consultation: symptomatic bradycardia Requesting Physician: Aditya Sotelo MD Attending Physician: Aditya Sotelo MD History of Present Illness 73-year-old woman with paroxysmal atrial fibrillation (apixaban/nebivolol/verapamil), tachybradycardia syndrome, benign atrial and ventricular ectopy, and hypertension who awoke from sleep last night with tachypalpitations, dyspnea, and lightheadedness and was found upon ER evaluation to have atrial fibrillation with rapid ventricular response (up to 126 bpm). Patient is followed by Dr. Shi routinely. She has had multiple episodes of recurrent paroxysmal atrial fibrillation in r ecent years, they tend to respond to a single dose of flecainide and resolve in less than a day. She was evaluated at [facility] EP clinic where continued medical management was recommended. At recent baseline, she has felt well. Resting heart rate on medications is borderline bradycardic, but she has reasonable exercise tolerance and no ongoing complaints. ECG on ER evaluation showed atrial fibrillation with ventricular rate 97 bpm, LVH with minor repolarization abnormalities, no major ST deviation. Troponin values were 18, 20, and 17. Chest x-ray unremarkable. Labs notable for magnesi um of 1.7 (on chronic hydrochlorothiazide for hypertension), potassium was unremarkable at 4.3. She received a dose of metoprolol tartrate 25 mg orally earlier this morning as well as 100 mg of flecainide, subsequently she remained in atrial fibrillation but has had periods of relative bradycardia (as low as 30-40 bpm) and has noted occasional lightheadedness. No hypotension documented, BPs have been normotensive. Due to "symptomatic bradycardia" she received atropine and glucagon. At the time of my evaluation, she was comfortable at rest with no lightheadedness, chest pain, dyspnea, or any other somatic complaints. BP was normotensive and beat to beat heart rate was variable but averaging around 60 bpm. Allergies Allergy/AdvReac Type Severity Reaction Status Date / Time Iodinated Contrast Media Allergy Severe HIVES Verified 01/10/24 02:13 Penicillins Allergy Severe hives Verified 01/10/24 02:13 Cephalosporins Allergy Intermediate Hives Verified 01/10/24 02:13 fentanyl Allergy Intermediate INCREASE Verified 01/10/24 02:13 IN BP NSAIDS (Non-Steroidal Allergy Intermediate migraines Verified 01/10/24 02:13 Anti-Inflamma prednisone Allergy Intermediate all over Verified 01/10/24 02:13 body aches Sulfa (Sulfonamide Allergy Mild Hives Verified 01/10/24 02:13 Antibiotics) codeine Allergy Unknown Unknown Verified 01/10/24 02:13 niacin Allergy Unknown leg and Verified 01/10/24 02:13 muscle pain Grfdnrz-LIT-BqU Reductase Allergy Unknown leg and Verified 01/10/24 02:13 Inhibitor muscle pain [Qeffvak-Sby-Vby Reductase Inhibitor] cephalexin [From Keflex] Allergy Hives Verified 01/10/24 02:15 Home Medications Medication Instructions Recorded Confirmed Type multivitamin 1 tab PO QAM 11/27/18 01/10/24 History ascorbic acid (vitamin C) 1,000 mg 1 gm PO QAM 03/21/19 01/10/24 History tablet coenzyme Q10 200 mg capsule 200 mg PO QAM 07/31/20 01/10/24 History aspirin 81 mg tablet 81 mg PO Q2D 01/07/21 01/10/24 History omega-3 fatty acids 1,000 mg 1,000 mg PO QAM 01/07/21 01/10/24 History capsule (Fish Oil Concentrate) cyclosporine 0.05 % eye drops in a 1 drp ophthalmic (eye) Q12H 03/01/21 01/10/24 History dropperette (Restasis) biotin 10,000 mcg capsule 10,000 mcg PO QAM 06/02/22 01/10/24 History resveratrol 250 mg capsule 250 mg PO QAM 06/02/22 01/10/24 History turmeric 450 mg-turmeric root 1 cap PO QAM 06/02/22 01/10/24 History extract 50 mg capsule calcium carbonate 600 mg-vitamin 1 tab PO DAILY 09/09/22 01/10/24 History D3 5 mcg (200 unit) tablet alprazolam 1 mg tablet,extended 1 mg PO QAM PRN Anxiety #30 tabs 12/15/22 Rx release 24 hr valacyclovir 1 gram tablet 1,000 mg PO BID PRN Outbreak #40 01/25/23 01/10/24 Rx tabs colesevelam 625 mg tablet (WelChol) 1,875 mg (3 x 625 mg) PO BID #540 03/27/23 01/10/24 Rx tabs ramipril 10 mg capsule 10 mg PO BID #180 caps 03/27/23 01/10/24 Rx magnesium chloride 64 mg 64 mg PO BID #180 tabs 04/20/23 01/10/24 Rx (magnesium chloride) tablet,delayed release levothyroxine 100 mcg tablet 100 mcg PO QAM #90 tabs 07/03/23 01/10/24 Rx nebivolol 2.5 mg tablet (Bystolic) 2.5 mg PO QAM #90 tabs 07/03/23 01/10/24 Rx rosuvastatin 5 mg tablet 5 mg PO 3XWK #90 tabs 07/25/23 01/10/24 Rx apixaban 5 mg tablet (Eliquis) 5 mg PO BID #180 tabs 10/20/23 01/10/24 Rx famotidine 20 mg tablet 20 mg PO BID #180 tabs 10/20/23 01/10/24 Rx hydrochlorothiazide 25 mg tablet 25 mg PO QAM #90 tabs 10/20/23 01/10/24 Rx ezetimibe 10 mg tablet 10 mg PO QAM #90 tabs 12/04/23 01/10/24 Rx flecainide 50 mg tablet 50 mg PO Q12H PRN atrial 12/04/23 01/10/24 Rx fibrillation #180 tabs verapamil 240 mg tablet,extended 240 mg PO QAM #90 tabs 12/04/23 01/10/24 Rx release paroxetine HCl 20 mg tablet 20 mg PO QAM #90 tabs 12/14/23 01/10/24 Rx metoprolol tartrate 25 mg tablet 25 mg PO Q6 PRN .a-fib 01/10/24 01/10/24 History Patient History Medical History (Updated 01/10/24 @ 14:23 by Vitaliy Carballo MD) Supraventricular tachycardia hx. Hx of colonic polyps Hiatal hernia Elevated liver enzymes Atrial fibrillation with rapid ventricular response typically will last for 12-24 hours. will convert with medication. last episode 03/11/22. Surgical History History of carpal tunnel surgery of left wrist (05/2022) History of colonoscopy History of ERCP S/P left knee arthroscopy (10/2014) x2 partial lateral meniscectomy S/P carpal tunnel release Right wrist S/P trigger finger release b/l hands S/P cataract extraction Hx of tonsillectomy H/O arthroscopy of shoulder (07/13/16) Right shoulder, 07/13/2016 H/O adenoidectomy Family History Mother Carotid stenosis Hearing loss Coronary heart disease Father , age 52 Heart disease Myocardial infarction, Onset Age: 52 Sister Breast cancer Other No family history of adverse response to anesthesia Denies family history of Ovarian cancer Prostate cancer Colorectal cancer Social History Smoking Status: Never smoker Second Hand Exposure: No; Do You Dip or Chew Tobacco: No; Hx Alcohol Use: No Hx Substance Use: No Preferred Language: Zimbabwean Communication Ability: Effective Visual Impairment: No Limitations Hearing Ability: Use of Hearing Aid Rubber Stamps And Dies Supervisor Required: No Beliefs That Will Affect Care: None marital status: Current Living Situation: Spouse current occupational status: retired Other Information That Helps Us Care for You: No Feels Safe at Home: Yes Safety Concerns: Feels Safe At This Time Childhood Exposure to Second-Hand Smoke: Yes Diet: regular Diet Comment: regular caffeine: No during the past year weight has: remained stable Dental Care, Regularly: Yes Physical Activity Frequency: Daily Seatbelt Use: always Sunscreen Use: No Assistive Devices: Hearing Aid - Bilateral Physical Exam Physical Exam: Adult white female in no acute distress. Afebrile. BP 131/70 mmHg. Average pulse around 60 bpm and irregular (wide moment to moment variation). Respirations 20 but unlabored. Skin: no ecchymoses or generalized lesions. HEENT: unremarkable. Neck: JVP at the clavicle at 90 degrees, no carotid bruits. Lungs: clear. Cardiac: irregular rhythm, normal S1-2, no obvious murmur. Abdomen: benign. Extremities: no edema, pulses intact. Neurologic: normal affect and conversation, nonfocal. Results & Data Laboratory Results Sodium 135, potassium 4.3, magnesium 1.7, BUN 13, creatinine 0.68. Diagnostic Findings ECG as noted in HPI. Chest x-ray unremarkable. Echocardiogram 2020 with normal systolic function, mild LVH, mild MR with normal CVP. Remote dobutamine stress echocardiogram negative for myocardial ischemia (2007). PG Care Time/CCT Total # of Minutes Spent Total Time Spent with Patient: Total time spent is greater than 50% in coordination of care (as documented) at patient's floor/unit and/or counseling patient: Coding Level of Care Code 65264 IN/OBS CONSULT LVL 4,60M Diagnoses Atrial fibrillation with rapid ventricular response I48.91 Tachycardia-bradycardia syndrome I49.5 Bradycardia R00.1 Hypomagnesemia E83.42 Elevated troponin R79.89
[2024-01-10] MEDS: ONDANSETRON INJ 2 MG/ML 2 ML VIAL IV STA (14:15)
[2024-01-10] MEDS: GLUCAGON 3 MG in SYRINGE 0 ML IV ONE (14:15)
[2024-01-10 15:25] LABS: Troponin I High Sensitivity 12.3 pg/ml (0-14)
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
--- NOTE | 2024-01-10 15:52 | Communication Note ---
Date of Service: January 10, 2024 Please refer to the H&P dictated earlier this morning for details of presentation on admission. In brief, this is a patient with a history of atrial fibrillation, tachybradycardia syndrome who presented with lightheadedness, shortness of breath, palpitations. She was found to be in rapid A-fib. At home she takes metoprolol 25 and flecainide on an as-needed basis for RVR. She developed flecainide and metoprolol in the emergency room. While in the ER, her heart rate started to go down in the 30s. She was symptomatic with lightheadedness with her heart rate down in the 30s. She got a dose of atropine 0.5 mg IV. I also ordered glucagon 3 mg IV. She continued to be bradycardic although relatively less frequently. Spoke to certified medication technician and debt management counselor. Will transfer the patient to the ICU overnight. I will hold further rate controlling agents like verapamil, metoprolol.. Cardiology and debt management counselor involved.
[2024-01-10 16:51] LABS: Thyroid Stimulating Hormone 1.679 uIu/ml (0.300-4.500)
--- NOTE | 2024-01-10 19:14 | Billing Data ---
Date of Service January 10, 2024 Coding Level of Care Code 74836 INT INP/OBS CARE
[2024-01-10] MEDS ORDERED: METOPROLOL TARTRATE 25 MG TAB PO SCH (21:00)
[2024-01-11 04:40] LABS: BUN Creatinine Ratio 16.4 (10-20); Calcium 8.6 mg/dl (8.6-10.3); Creatinine Clr Calc Pharmacy 86.7 ml/min; Est GFR (African American) 101.1 ml/min; Est GFR (Non-African American) 87.2 ml/min; Magnesium 1.9 mg/dl (1.7-2.4); Potassium 4.1 mmol/L (3.5-5.1)
[2024-01-11 06:27] VITALS: TEMP 97.9
--- NOTE | 2024-01-11 08:00 | Critical Care Progress Note ---
Date of Service January 11, 2024 Assessment & Plan (1) Bradycardia: (2) Elevated troponin: (3) Atrial fibrillation with rapid ventricular response: (4) Chronic anticoagulation: (5) Tachycardia-bradycardia syndrome: (6) Paroxysmal atrial fibrillation: (7) History of back surgery: (8) Chronic low back pain: (9) Acid reflux disease: (10) Hypertension: Plan -- Symptomatic bradycardia Iatrogenic likely from medication/beta-norberto Got glucagon IV in the ER on 01/10/2024 TSH within normal limit Will monitor in the ICU, if there is symptomatic bradycardic episodes then we will give another dose of glucagon or consider starting the patient on dopamine EKG 01/10/2024 12:50 AM, A-fib, left axis deviation, no ST-T wave changes appreciated --Elevated troponin Mildly elevated likely from underlying type II [place] Continue to trend -- History of A-fib Usually on verapamil as well as flecainide at home Would hold the medication for the time being -- History of chronic lower back pain On paroxetine -- History of hypertension On ramipril as well as hydrochlorothiazide -- Hypothyroidism On levothyroxine 100 mcg -- History of mild BAYLEE Not using CPAP --Prophylaxis VTE: Eliquis GI: Pepcid Lines: Peripheral Diet: Cardiac Plan: In/out: -850, urine output 1000 mL Continue to hold verapamil as well as flecainide Magnesium being replaced Patient okay to be downgrade to telemetry floor Case was discussed with cardiology Please note the above document was generated using voice recognition software. It may contain grammatical, syntax or spelling errors.Any formal questions or concerns about the content, text or information contained within the body of this dictation should be directly addressed to the provider for clarification. Admission and Anticipated Discharge Date Admission Date: January 10, 2024 Subjective Patient seen and examined at bedside. No acute distress, no adverse events overnight Heart rate was in the high 50s to low 60s at the time of examination Denied any nausea or vomiting No dizziness, no palpitation Saturation was 97% on room air. Systolic blood pressure was in the 120s Review of Systems 2 Review of Systems: All systems reviewed & are unremarkable except as noted in Subjective Physical Exam 2 Physical Exam: Constitutional: No acute distress HEENT: EOMI, PERRLA Respiratory system: Good air entry bilaterally, no wheeze, no rhonchi, no crackles CVS: S1-S2 positive, no murmurs or gallops, bradycardia Abdomen: Soft, nontender, nondistended, positive bowel sounds x4 Extremities: +2 pulses bilaterally radialis/ dorsalis pedis, no cyanosis, no edema Neuro: Awake alert oriented x3 Psych: Normal mood and affect G/U: No Merrill Skin: no rashes, warm and dry Lymphatic: no cervical or axillary lymphadenopathy Results & Data Results & Data Vital Signs (Past 12 Hours) Vital Signs Temp Pulse Resp BP Pulse Ox Pulse Ox O2 Del Method 01/11/24 06:01 111/43 L 01/11/24 06:01 111/43 L 01/11/24 06:00 54 L 10 L 99 01/11/24 05:56 100 01/11/24 05:12 52 L 17 99 01/11/24 05:00 135/52 L 01/11/24 04:03 60 16 100 01/11/24 04:01 119/49 L 01/11/24 04:01 119/49 L 01/11/24 04:00 36.6 C 01/11/24 03:57 52 L 12 100 01/11/24 03:01 151/51 H 01/11/24 03:00 47 L 18 99 01/11/24 02:00 138/60 01/11/24 02:00 50 L 15 99 01/11/24 01:15 48 L 24 99 01/11/24 01:04 139/67 01/11/24 00:11 36.8 C 01/11/24 00:03 51 L 15 98 01/11/24 00:01 126/54 L 01/11/24 00:00 49 L 01/10/24 23:09 51 L 12 100 01/10/24 23:04 138/64 01/10/24 22:57 56 L 19 99 01/10/24 22:12 56 L 17 98 01/10/24 21:13 123/64 01/10/24 21:12 62 19 99 Nasal Cannula 01/10/24 20:57 49 L 19 94 01/10/24 20:03 49 L 13 95 01/10/24 20:00 112/55 L O2 Del Method O2 Flow Rate O2 Flow Rate 01/11/24 06:01 01/11/24 06:01 01/11/24 06:00 01/11/24 05:56 Nasal Cannula 2 01/11/24 05:12 01/11/24 05:00 01/11/24 04:03 01/11/24 04:01 01/11/24 04:01 01/11/24 04:00 01/11/24 03:57 01/11/24 03:01 01/11/24 03:00 01/11/24 02:00 01/11/24 02:00 01/11/24 01:15 01/11/24 01:04 01/11/24 00:11 01/11/24 00:03 01/11/24 00:01 01/11/24 00:00 01/10/24 23:09 01/10/24 23:04 01/10/24 22:57 01/10/24 22:12 01/10/24 21:13 01/10/24 21:12 2 01/10/24 20:57 01/10/24 20:03 01/10/24 20:00 Laboratory Results 01/10/24 01:01 01/11/24 03:53 Coding Level of Care Code 76485 SUB INP/OBS CARE 2/35MIN Diagnoses Bradycardia R00.1 Elevated troponin R79.89 Atrial fibrillation with rapid ventricular response I48.91 Chronic anticoagulation Z79.01 Tachycardia-bradycardia syndrome I49.5 Paroxysmal atrial fibrillation I48.0 History of back surgery Z98.890 Chronic low back pain M54.5; G89.29 Acid reflux disease K21.9 Hypertension I10
[2024-01-11] MEDS ORDERED: DEXMEDETOMIDINE 200 MCG/50 ML IV SCH (09:30)
[2024-01-11] MEDS: MAGNESIUM OXIDE 400 MG TAB PO SCH (10:24)
[2024-01-11 12:12] VITALS: RESP 20; O2SAT 97
--- NOTE | 2024-01-11 12:34 | Discharge Summary ---
Date of Service January 11, 2024 Admission HPI Per Admitting Provider 73 y/o with a PMHx of HLD, HTN, tachybrady syndrome, a fib, hypothyroidism, and chronic low back pain presents for evaluation of palpitations. Patient awoke from sleep experiencing lightheadedness, SOB, heart racing, and palpitations. She states that this felt different from her prior bouts of a fib and thats what brought her to the ED. She has been in a fib with rvr in the past. Follows with Dr. Shi and has declined daily medication for rate control. Is anticoagulated with Eliquis 5 mg BID. Does have metoprolol and flecainide to use as needed for RVR. Patient with recent diuretic use, which may have caused an element of dehydration. Feels chest pressure/flutter, no pain. No nausea, vomiting, diarrhea. No fevers or chills. Given flecainide 100 mg and NSS 500 mL bolus in the ED. Trop slightly elevated a t 18.5 --> 20.0. Hospitalist team consulted for admission. Admission Exam Per Admitting Provider Gen: well appearing patient in NAD HEENT: AT NC MMM Resp: CTAB no wheezing no increased work of breathing CV: tachycardic, irregularly irregular, no m/r/g clinically well perfused Abd: non-distended MSK: no obvious deformities Skin: no rashes or bruising Neuro: alert and oriented Psych: appropriate mood and affect Principal Diagnosis Rapid atrial fibrillation followed by symptomatic bradycardia due to beta- norberto Tachybradycardia syndrome Discharge Exam General: Awake, conversant Heart: S1, S2/regular rate and rhythm, no murmur rubs or gallops Lungs: Clear to auscultation bilaterally. Normal effort Abdomen: Soft/nontender/nondistended. No hepatosplenomegaly Extremities: No clubbing/cyanosis. No edema Behavior: Appropriate, cooperative Discharge Data Allergies Allergy/AdvReac Type Severity Reaction Status Date / Time Iodinated Contrast Media Allergy Severe HIVES Verified 01/10/24 02:13 Penicillins Allergy Severe hives Verified 01/10/24 02:13 Cephalosporins Allergy Intermediate Hives Verified 01/10/24 02:13 fentanyl Allergy Intermediate INCREASE Verified 01/10/24 02:13 IN BP NSAIDS (Non-Steroidal Allergy Intermediate migraines Verified 01/10/24 02:13 Anti-Inflamma prednisone Allergy Intermediate all over Verified 01/10/24 02:13 body aches Sulfa (Sulfonamide Allergy Mild Hives Verified 01/10/24 02:13 Antibiotics) codeine Allergy Unknown Unknown Verified 01/10/24 02:13 niacin Allergy Unknown leg and Verified 01/10/24 02:13 muscle pain Eztnhzj-JST-JoO Reductase Allergy Unknown leg and Verified 01/10/24 02:13 Inhibitor muscle pain [Ojuyuhb-Zlb-Wjy Reductase Inhibitor] cephalexin [From Keflex] Allergy Hives Verified 01/10/24 02:15 Consultations 01/10/24 03:41 ED Decision to Admit Stat 01/10/24 12:22 Consult Cardiology Routine 01/10/24 15:56 Consult Disk Operator Routine Hospital Course (1) Atrial fibrillation with rapid ventricular response: Patient presented in a fib with RVR. Likely in the setting of acute dehydration from diuretic use and low mag. Given flecainide 100 mg in the ED. She was then given a total of 50 mg of metoprolol In response, her heart rate started to go down in the 30s She had episodes of lightheadedness associated with a heart rate in the 30s She was treated with atropine for symptomatic bradycardia as well as glucagon to reverse the beta-blockade She was monitored in the intensive care unit Cardiology was consulted Today her heart rate is in the 50s. She is completely asymptomatic. Cardiology cleared her for discharge on a lower dose of verapamil at 180 mg starting tomorrow (down from 240 mg home dose) Cardiology will arrange for her follow-up with Dr. Hdz when they will talk about ablation in the future Magnesium was corrected Continue Devaughn Patient has been deemed stable for discharge after cardiology clearance (2) Panic disorder: Continue home meds - Xanax, paroxetine (3) Hypomagnesemia: Repletion as indicated (4) Hypercholesterolemia: Continue home meds (5) Anxiety and depression: See above (6) Hypothyroidism: Continue home levothyroxine. (7) Acid reflux disease: Continue home famotidine (8) Hypertension: Continue home verapamil and nebivolol. Hold HCTZ (9) Bradycardia: Please see problem #1 Plan Discharge to home today Total Time Total Time Spent Total Time Spent (In Minutes): 35 Discharge Plan Discharge Items Patient Disposition: Home - Self-Care Reason For Visit: A FIB WITH RVR Discharge Diagnosis: Rapid atrial fibrillation followed by symptomatic bradycardia due to beta- norberto Tachybradycardia syndrome Activity: Resume your previous activity Non-emergency contact: Primary Care Provider Call non-emergency contact if: you have any medication questions and your symptoms worsen Follow-up/Referrals: Sharri Chacon DO [Primary Care Provider] - 01/15/24 10:20 am (Scheduled with TORI Walker on 01/15/24 at 10:20 am) Diet: Heart Healthy Addtl Attending Provider Instructions: Advised to follow-up with PCP in 1 week Advised to follow-up with front end wheel loader operator. An appointment will be set up for you by your front end wheel loader operator's office and you will be notified of it Advised to note that your verapamil dose has been reduced from 240 mg to 180 mg. Advised to take your first dose of 180 mg on the morning of 01/11 Pending Studies at Discharge: No Stand-Alone Forms: My [facility] Medications and DC Order Prescriptions: New verapamil 180 mg capsule,ext rel. pellets 24 hr 180 mg PO QAM 30 Days Qty: 30 0RF Continued alprazolam 1 mg tablet extended release 24 hr 1 mg PO QAM PRN (Reason: Anxiety) Qty: 30 0RF valacyclovir 1 gram tablet 1,000 mg PO BID PRN (Reason: Outbreak) Qty: 40 1RF Rx Instructions: Take 1 tab PO bid x 7-10 days, repeat PRN. Start of first sign of symptoms. Repeat course PRN ramipril 10 mg capsule 10 mg PO BID Qty: 180 3RF colesevelam [WelChol] 625 mg tablet 1,875 mg PO BID Qty: 540 3RF magnesium chloride 64 mg tablet,delayed release (DR/EC) 64 mg PO BID Qty: 180 3RF levothyroxine 100 mcg tablet 100 mcg PO QAM Qty: 90 3RF rosuvastatin 5 mg tablet 5 mg PO 3XWK Qty: 90 3RF hydrochlorothiazide 25 mg tablet 25 mg PO QAM Qty: 90 1RF Hold Instructions: low BP Rx Instructions: Restarted by [facility] Cardiology on 02/20/2023- Per patient famotidine 20 mg tablet 20 mg PO BID Qty: 180 3RF Eliquis 5 mg tablet 5 mg PO BID Qty: 180 3RF Hold Instructions: x 5 days ezetimibe 10 mg tablet 10 mg PO QAM Qty: 90 1RF flecainide 50 mg tablet 50 mg PO Q12H PRN (Reason: atrial fibrillation) Qty: 180 3RF paroxetine HCl 20 mg tablet 20 mg PO QAM Qty: 90 1RF multivitamin tablet 1 tab PO QAM ascorbic acid (vitamin C) 1,000 mg tablet 1 gm PO QAM coenzyme Q10 200 mg capsule 200 mg PO QAM aspirin 81 mg tablet 81 mg PO Q2D omega-3 fatty acids [Fish Oil Concentrate] 1,000 mg capsule 1,000 mg PO QAM Restasis 0.05 % dropperette 1 drp ophthalmic (eye) Q12H biotin 10,000 mcg Capsule 10,000 mcg PO QAM resveratrol 250 mg Capsule 250 mg PO QAM turmeric-turmeric root extract 450-50 mg Capsule 1 cap PO QAM calcium carbonate-vitamin D3 600 mg-5 mcg (200 unit) tablet 1 tab PO DAILY metoprolol tartrate 25 mg tablet 25 mg PO Q6 PRN (Reason: .a-fib) Discontinued nebivolol [Bystolic] 2.5 mg tablet 2.5 mg PO QAM Qty: 90 3RF verapamil 240 mg tablet extended release 240 mg PO QAM Qty: 90 1RF Discharge Orders: Discharge Order (Routine); Ordered 01/11/24 Ordered By: Aditya Sotelo Admission Data Admit Date/Time: 01/10/24 04:24 Attending Provider: Aditya Sotelo Admit Provider: Suzanne Gaviria Primary Care Provider: Sharri Chacon Other Providers: Adam George; Vitaliy Carballo; Nitesh Phillips Other Interventions: Discharge Summary Assessment (RN) Last Done: 01/11/24 13:11
--- NOTE | 2024-01-11 12:56 | Cardiology Progress Note ---
Date of Service January 11, 2024 Assessment & Plan (1) Atrial fibrillation with rapid ventricular response: (2) Tachycardia-bradycardia syndrome: (3) Bradycardia: (4) Hypomagnesemia: (5) Elevated troponin: Plan Discussed with patient at some length options for future management of her paroxysmal atrial fibrillation. Would consider initiation of routine flecainide, but she was concerned about a potential interaction between the flecainide and Paxil (both can prolong QT int erval). As long as therapy is monitored, would still be reasonable to initiate flecainide, but will defer this to the outpatient setting. Check ECG today to better document QT interval while in sinus rhythm. She has a tendency to bradycardia and remains fairly bradycardic a full 24 hours after her last medications. After discussion with Dr. Shi (her primary recessing machine operator), recommend reducing verapamil 240 mg to 180 mg daily (first dose tomorrow). She can continue to use the beta-norberto and flecainide on a as needed basis should she have any recurrence of A-fib. She is chronically anticoagulated with apixaban. I will arrange follow-up with Dr. Shi within the next few weeks. He noted that she may be a candidate for pulmonary vein ablation in the future (she was evaluated in the past but her episodes were too infrequent to merit intervention). Case discussed with Dr. Shi and Dr. Sotelo. Chrisay for discharge. Admission and Anticipated Discharge Date Admission Date: January 10, 2024 Subjective Uneventful night, she slept well and feels well this morning. No chest pain, dyspnea, palpitations, or lightheadedness. Reverted to sinus rhythm yesterday evening, telemetry shows rate 50-60 bpm. Physical Exam Physical Exam: Comfortable. BP normotensive. Pulse 60 bpm regular. Skin: no ecchymoses or generalized lesions. HEENT: unremarkable. Neck: JVP at the clavicle at 90 degrees, no carotid bruits. Lungs: clear. Cardiac: irregular rhythm, normal S1-2, no obvious murmur. Abdomen: benign. Extremities: no edema, pulses intact. Neurologic: normal affect and conversation, nonfocal. Results & Data Laboratory Results Sodium 133, potassium 4.1, BUN 11, creatinine 0.67. PG Care Time/CCT Total # of Minutes Spent Total Time Spent with Patient: Total time spent is greater than 50% in coordination of care (as documented) at patient's floor/unit and/or counseling patient: Coding Level of Care Code 97498 SUB INP/OBS CARE 350MIN Diagnoses Atrial fibrillation with rapid ventricular response I48.91 Tachycardia-bradycardia syndrome I49.5 Bradycardia R00.1 Hypomagnesemia E83.42 Elevated troponin R79.89
[2024-01-11 13:12] VITALS: BP 117/66; PULSE 46
--- NOTE | 2024-01-11 17:12 | Electrocardiogram Report ---
Test Reason : Blood Pressure : */* mmHG Vent. Rate : 51 BPM Atrial Rate : 51 BPM P-R Int : 216 ms QRS Dur : 98 ms QT Int : 470 ms P-R-T Axes : * -35 -9 degrees QTcB Int : 433 ms Sinus bradycardia with 1st degree A-V block Left axis deviation Diffuse Minor Nonspecific T wave abnormality Abnormal ECG When compared with ECG of 10-Jan-2024 00:50, HR has decreased by 46 bpm Atrial fibrillation no longer present Confirmed by Vitaliy Carballo ([id number]) on 01/11/2024 5:12:04 PM Referred By: REFERRED SELF Confirmed By: Vitaliy Carballo
== END 2024-01-11 14:15 | disposition home or self-care (01) ==
LOC: EDINP 00:38 → ED 00:38 → SUATTDRO 04:24 → 1E 05:56